=== PATIENT | male | born 1960 | race Hispanic/Latino ===

== ENCOUNTER 2022-10-18 09:33 | Outpatient (CLI) | payer OTHER | END 2022-10-18 09:34 | disposition home or self-care (01) | LOC: MADRAD 09:33 | PROVIDERS: ATTEND Registered Nurse | DX: M25.512 Pain in left shoulder (principal); M75.102 Unspecified rotator cuff tear or rupture of left shoulder, not specified as traumatic ==

== ENCOUNTER 2022-10-24 07:31 | Outpatient (CLI) | payer OTHER | END 2022-10-24 07:32 | disposition home or self-care (01) | LOC: MADULT 07:31 | PROVIDERS: ATTEND Registered Nurse | DX: R10.12 Left upper quadrant pain (principal); K76.0 Fatty (change of) liver, not elsewhere classified | CPT/HCPCS: 76700 ==